=== PATIENT | female | born 2000 | race Caucasian/White ===

== ENCOUNTER 2021-04-19 12:38 | Emergency (ER) | payer OTHER ==
[~2021-04-19] VITALS: Ht 172.7 cm; Wt 68.0 kg
[2021-04-19] MEDS ORDERED: IBUPROFEN 800800 M1 PO (16:19)
[2021-04-19] MEDS ORDERED: CIPROFLOXIN HC2.5 M1 OPHTHALMIC (16:19)
[2021-04-19] MEDS ORDERED: FLEXERIL PO (16:19)
[2021-04-19] MEDS ORDERED: AUGMENTIN 875-1 EACH PO (16:19)
[2021-04-19 16:38] VITALS: BP 118/67
== END 2021-04-19 16:39 | disposition home or self-care (01) ==
LOC: M.ERS 12:38
DX: S06.0X1A Concussion with loss of consciousness of 30 minutes or less, initial encounter (principal); S00.83XA Contusion of other part of head, initial encounter; S61.253A Open bite of left middle finger without damage to nail, initial encounter; S62.653A Nondisplaced fracture of middle phalanx of left middle finger, initial encounter for closed fracture; S51.852A Open bite of left forearm, initial encounter; H11.33 Conjunctival hemorrhage, bilateral; Y04.1XXA Assault by human bite, initial encounter; Y92.89 Other specified places as the place of occurrence of the external cause; Y99.8 Other external cause status